=== PATIENT | male | born 1985 | race Caucasian/White ===

== ENCOUNTER 2016-07-28 10:19 | Outpatient (CLI) | payer BC ==
[~2016-07-28] VITALS: Ht 195.6 cm; Wt 143.3 kg
[2016-07-28 10:42] VITALS: BP 128/80
[2016-07-28] MEDS ORDERED: PRAV10TA PO (10:44)
[2016-07-28] MEDS ORDERED: DULA0.75 SQ (10:44)
[2016-07-28] MEDS ORDERED: LISI2.5T PO (10:44)
== END 2016-07-28 10:40 | disposition home or self-care (01) ==
LOC: PREOP 10:19
PROVIDERS: ATTEND Podiatrist Foot & Ankle Surgery
DX: Z01.818 Encounter for other preprocedural examination (principal); Z11.2 Encounter for screening for other bacterial diseases; M20.42 Other hammer toe(s) (acquired), left foot
CPT/HCPCS: 87081

== ENCOUNTER 2016-08-08 06:00 | Day surgery (SDC) | payer BC ==
[~2016-08-08] VITALS: Ht 195.6 cm; Wt 143.3 kg
[~2016-08-08 06:00] MED LIST: DULA0.75 SQ; LISI2.5T PO; PRAV10TA PO
[2016-08-08] MEDS ORDERED: LACTATED RINGERS 1,000 ML IV PRN (06:44)
[2016-08-08] MEDS ORDERED: MIDAZOLAM 2 MG/2 ML (VERSED) VIAL IV ONE (06:45)
[2016-08-08 07:00] VITALS: BP 125/83
[2016-08-08] MEDS ORDERED: ceFAZolin 1 GM/NS 50 ML IVPB IV ONE ×2 (07:00)
[2016-08-08] MEDS ORDERED: LACTATED RINGERS 1,000 ML IV ONE (07:04)
[2016-08-08] MEDS ORDERED: ONDANSETRON 4 MG/2 ML (SDV) Z0FRAN ONE (07:04)
[2016-08-08] MEDS ORDERED: MIDAZOLAM 2 MG/2 ML (VERSED) VIAL ONE (07:04)
[2016-08-08] MEDS ORDERED: SEVOFLURANE (ULTANE) 15 ML INHAL SOLN ONE ×8 (07:04→10:34)
[2016-08-08] MEDS ORDERED: LIDOCAINE PF 2% 10 ML (XYLOCAINE) AMP ONE (07:04)
[2016-08-08] MEDS ORDERED: proPOfol 200 MG/20 ML (DIPRIVAN) VIAL IV ONE (07:04)
[2016-08-08] MEDS ORDERED: fentaNYL INJECTION 100 MCG/2 ML AMP ONE ×2 (07:04→10:01)
[2016-08-08] MEDS ORDERED: LIDOCAINE 1% INJ 20 ML (XYLOCAINE) VIAL ONE (07:22)
[2016-08-08] MEDS ORDERED: BUPIVACAINE 0.5% 30 ML (SENSORCAINE) VIAL ONE (07:22)
--- NOTE | 2016-08-08 10:44 | Progress Note-Post Operative ---
Post-Operative Progess Note Surgeon (s)/Acid Bath Mixer (s) Surgeon NESSA COBURN DPM Acid Bath Mixer: none Pre-Operative Diagnosis HAMMERTOE LEFT 2ND 3RD AND 4TH, Hypertrophic 2nd Metatarsal Post-Operative Diagnosis Same Procedure & Operative Findings Date of Procedure 08/08/16 Procedure Performed/Findings contracted toes 2,3,4 left Anesthesia Type general Estimated Blood Loss Estimated blood loss (mL): minimal Specimens/Packing Specimens Removed none NESSA COBURN DPM August 08, 2016 10:44 am
[2016-08-08] MEDS ORDERED: morphine INJ 10 MG/ML 1ML (SYR OR VIAL) IVP PRN (10:45)
[2016-08-08] MEDS ORDERED: fentaNYL INJECTION 100 MCG/2 ML AMP IVP PRN (10:45)
[2016-08-08] MEDS ORDERED: ONDANSETRON 4 MG/2 ML (SDV) Z0FRAN IVP PRN ×2 (10:45→11:00)
[2016-08-08] MEDS ORDERED: LACTATED RINGERS 1,000 ML IV SCH (10:53)
[2016-08-08] MEDS ORDERED: CEPH500C PO (10:55)
[2016-08-08] MEDS ORDERED: HYDR-3812 PO (10:55)
[2016-08-08] MEDS ORDERED: HYDROcodone/APAP 5 MG/325 MG (LORTAB) TAB PO PRN (11:00)
[2016-08-08 11:35] VITALS: BP 128/84
[2016-08-08 12:05] VITALS: BP 130/90
[2016-08-08 12:35] VITALS: BP 130/83
--- NOTE | 2016-08-08 13:20 | Physical Therapy Progress Note ---
Therapy Progress Note Patient and spouse both state good knowledge of prior use of crutches and knee crutch for left LE use. PT educated patient and spouse on stair negotiation with up with the good leg and down with the bad leg and crutches. Spouse states they will use a w/c for 1-2 days then advance to crutches. PT instructed them to notify therapy is any questions or problems arise. No PT indicated. 1 visit LIAM CEDILLO PT August 08, 2016 13:20
[2016-08-08 13:50] VITALS: BP 130/83
--- NOTE | 2016-08-08 14:10 | Diagnostic Imaging Report ---
EXAMINATION: Frontal and lateral views of the left foot. INDICATION: Postoperative evaluation for hammertoe. FINDINGS: K wires through the interphalangeal joints of the second, third, and fourth toes with osteotomies of the head of the proximal phalanges of these toes seen. There is a screw through the head of the second metatarsal also identified. Joint alignment is satisfactory. There is a calcaneal spur seen. IMPRESSION: K wires through the interphalangeal joints of the second, third, and fourth toes with the osteotomy changes as described. Dictated by: Dictated on workstation # [id number]
--- NOTE | 2016-08-09 01:02 | OPERATIVE REPORT ---
DATE OF SERVICE: 08/08/2016 SURGEON: Amber Daly DPM PREOPERATIVE DIAGNOSES: Hammer digit syndrome, left second, third, and fourth digits with hypertrophic second metatarsal. POSTOPERATIVE DIAGNOSES: Hammer digit syndrome, left second, third, and fourth digits with hypertrophic second metatarsal. PROCEDURES: 1. Reduction of hammertoes, left second, left third and left fourth digits. 2. Second metatarsal osteotomy, left foot. WOUND CLASS: Clean. ANESTHESIA: General. HEMOSTASIS: Pneumatic thigh tourniquet at 250 mmHg. INDICATIONS: This 31-year-old male presents complaining of painful hammertoes, left foot. He is also complaining about pain underneath the left second metatarsophalangeal joint. Conservative therapy is met with unsatisfactory results and the patient is agreeable to surgical intervention after risks and complications were discussed at length. No guarantees were extended to the patient and he is willing to proceed. PROCEDURE: The patient was brought back to the operating table, placed in a secure supine position. General anesthetic was then induced. A proper time-out was performed. The left foot was then prepped and draped in normal sterile manner after a tourniquet was placed over the left lower extremity over several layers of padding. The left foot was then elevated, allowed to exsanguinate after which the tourniquet was inflated to 250 mmHg. Attention was then directed to the left foot where a 5 cm longitudinal linear incision was created from the metatarsophalangeal joint to the distal interphalangeal joint of the left second toe. The incisions were deepened in standard plane with great care to identify and retract all vital neurovascular structures. All the necessary blood vessels were cauterized as encountered. The incision was deepened down to the extensor tendon where a Z slide lengthening was performed overlying the proximal phalanx. The extensor tendon was reflected proximally exposing the metatarsophalangeal joint. The extensor rock was also released. Dorsal capsulorrhaphy was performed to the metatarsophalangeal joint and released the medial lateral collateral ligaments. The McGlamry elevator was utilized to release the plantar adhesions to allow the proximal phalanx to come down to more rectus alignment. Next, a drill was utilized to create a hole from dorsal to plantar at the base of the left second toe proximal phalanx. Dissection was carried out to the proximal interphalangeal joint where a medial and lateral collateral release was performed. The flexor digitorum brevis was identified, then reflected medial and laterally and the long flexor tendon was identified and cut at this point. It was then passed through the hole created at the proximal phalanx from plantar to dorsal. Next, the head of the proximal phalanx was fashioned into a peg with a power sagittal saw and power rajendra. A hole was created to the base of the middle phalanx with a power rajendra for the peg-in-hole type arthrodesis. The wound was flushed with copious amounts of normal saline. Good alignment was appreciated at this time. Attention was then directed to the second metatarsal head where hypertrophic head was identified. Utilizing a power sagittal saw, a Gray type osteotomy was performed. The capital fragment was translocated proximally and fixated in its corrected position with a 2.0 snap-off screw 14 mm of length, driven from dorsal to plantar. Excellent bony apposition and fixation was appreciated at this time. The excess bone to the second metatarsal head was reduced with a rongeur followed by a rasp. The wound was flushed with copious amounts of normal saline. The proximal phalanx was placed in physiological tension with a long flexor tendon pulled dorsally. The tendon was then split and was sutured to the medial and lateral aspect of the proximal phalanx. Next, a 0.054 K-wire was driven down to toe, securing the digit in rectus position. Excellent alignment was appreciated. The excess K-wire was cut and a protected ball placed over the end of the wire. Attention was then directed to the third and fourth rays where the same procedure was performed. Incision was created from the metatarsophalangeal joint to the distal interphalangeal joint of the respective digits. The incisions were deepened in the same plane with great care to identify and retract all vital neurovascular structures. Only necessary blood vessels were cauterized as encountered. The incision was deepened down to the extensor tendons where Z slide lengthening was performed overlying the proximal phalanx. The extensor hoods were released and a dorsal capsulorrhaphy performed to the metatarsophalangeal joint. The wound was flushed with copious amounts of normal saline. The head of the proximal phalanx was fashioned into a peg and the similar procedure was performed on the second ray and a hole created to the base of the middle phalanx again as was done previously, this time to the third and fourth digits. A 0.054 K-wire was driven down to toe to secure the digits in rectus alignment. Excellent bony apposition and fixation was appreciated at this time. The excess K-wire was cut and protected ball placed over the end of the wires. Good alignment was now appreciated to the second, third and fourth rays. The wounds were flushed once again after which closure was performed in layers. Deep closure was performed with 3-0 Vicryl, superficial with 4-0 Vicryl, skin closure with 4-0 Prolene in a horizontal mattress type stitch. It should also be noted that the flexor tendon transfer was secured with a 0 Vicryl stitch. Postoperative injection consisted of 16 mL of 0.5% Marcaine injected in local infusion to the surgical sites. Postoperative dressing consisted of Betadine soaked adaptic, sterile 4 x 4s, sterile Kerlix, all secured with a Coban wrap. Prior to the dressing, the tourniquet was released noting appropriate capillary refill time to all digits of the left foot. The patient tolerated the operation and was released to the recovery room with vital signs stable and vascular status intact to all digits of the left foot. He was given postoperatively a prescription for Vicodin and Keflex. He is to follow up in my office in 10 days period of time or sooner if necessary. Job ID: [id number] DocumentID: [id number] Dictated Date: 08/08/2016 10:51:25 Water Mechanic Date: 08/09/2016 00:10:34 Dictated By: MAGGIE MILLER
== END 2016-08-08 13:50 | disposition home or self-care (01) ==
LOC: SDC 06:00
PROVIDERS: ATTEND Podiatrist Foot & Ankle Surgery
DX: M20.42 Other hammer toe(s) (acquired), left foot (principal); M89.372 Hypertrophy of bone, left ankle and foot; E11.42 Type 2 diabetes mellitus with diabetic polyneuropathy; Z79.899 Other long term (current) drug therapy; I10 Essential (primary) hypertension; E78.5 Hyperlipidemia, unspecified; E66.9 Obesity, unspecified; Z68.37 Body mass index [BMI] 37.0-37.9, adult
CPT/HCPCS: 73620; 82962

== ENCOUNTER 2016-09-23 05:11 | Emergency (ER) | payer BC ==
[~2016-09-23] VITALS: Ht 195.6 cm; Wt 142.9 kg
[~2016-09-23 05:11] MED LIST changes: +CEPH500C PO; +HYDR-3812 PO
[2016-09-23] MEDS ORDERED: KETOROLAC 30 MG/ML VIAL IVP STA (05:41)
[2016-09-23] MEDS ORDERED: NS IV 1000 ML 1,000 ML IV ONE (05:41)
--- NOTE | 2016-09-23 05:41 | ED Headache ---
General Chief Complaint: Head/Cervical Problems Stated Complaint: MIGRAINE,FEVER 100.7 Nursing Triage Note: HEADACHE X2 DAYS. FEVER X1 DAY. Nursing Sepsis Screen: No Definite Risk Source: patient, spouse Exam Limitations: no limitations History of Present Illness Time seen by provider: 05:35 Initial Comments Patient presents with 2 days progressively worsening headache that started on the left side is constant and has migrated they're global headache. He is not experiencing any URI symptoms such as congestion and ear popping pain in the ears nose eyes or throat or sore throat or difficulty swallowing. He states she' s felt a little clammy and chilly. He does have type 2 diabetes he's not checked his own blood sugar for a while but he says typically runs in the 140s fasting. He is not immunocompromised and has no other significant medical history. He's had no rash or exposures to sick people. No travels [place]. He denies dysuria or discharge. He has a bah boot on his left foot from a recent hammertoe surgery by podiatry. He is still on the Keflex that was prescribed postop. He has used 3 doses in the past 2 days of csil-jyv-cfwexzw migraine medicine and one tablet of ibuprofen very little success to treat his headache. He feels he has a little bit of sensitivity to light and loud sounds. Sleep helped. Although the patient has no exposures to meningitis they were concerned after reading on the CDC website that maybe he would have meningitis and she has a headache a little neck stiffness and chills. Allergies and Home Medications Allergies Coded Allergies: No Known Drug Allergies (Unverified , 07/28/16) Home Medications Cephalexin 500 Mg Capsule, 1 CAP PO TID, #21 Ref 0 Prescribed by: NESSA COBURN on 08/08/16 1055 Dulaglutide 0.75 Mg/0.5 Ml Pen.injctr, 0.75 MG SQ WEEK, (Reported) takes on Monday Lisinopril 2.5 Mg Tablet, 2.5 MG PO HS, (Reported) Ondansetron HCl 4 Mg Tab, 4 MG PO Q6H PRN for NAUSEA/VOMITING-1ST LINE, #10 Ref 0 Prescribed by: YONY KAUFMAN on 09/23/16 0624 Pravastatin Sodium 10 Mg Tablet, 10 MG PO HS, (Reported) Constitutional: chills, diaphoresis, No fever (100.0F) Eyes: See HPI, Denies Pain, Photophobia Ears, Nose, Mouth, Throat: denies nose pain, denies nose discharge, denies epistaxis, denies mouth pain, denies mouth swelling, denies throat pain, denies throat swelling Respiratory: No cough, No short of breath Cardiovascular: No chest pain, No palpitations, No vascular heart diseas Gastrointestinal: No abdominal pain, No constipation, No diarrhea, No loss of appetite, nausea, No vomiting Genitourinary: No dysuria, No frequency Musculoskeletal: No back pain, No joint pain Skin: No pruritus, No rash Psychiatric/Neurological: See HPI, Headache, Denies Numbness, Denies Paresthesia Past Eeospco-Ngmwis-Fafxxz Hx Patient Social History Alcohol Use: Denies Use Recreational Drug Use: No Smoking Status: Never a Smoker 2nd Hand Smoke Exposure: No Recent Foreign Travel: No Contact w/Someone Who Travel: No Recent Infectious Disease Expo: No Recent Hopitalizations: No Immunizations Up To Date Tetanus Booster (TDap): Less than 5yrs Seasonal Allergies Seasonal Allergies: No Surgeries HX Surgeries: No Surgeries: Orthopedic Respiratory Hx Respiratory Disorders: No Cardiovascular Hx Cardiac Disorders: No Cardiac Disorders: High Cholesterol, Hypertension Neurological Hx Neurological Disorders: No Genitourinary Hx Genitourinary Disorders: No Gastrointestinal Hx Gastrointestinal Disorders: No Musculoskeletal Hx Musculoskeletal Disorders: Yes Endocrine Hx Endocrine Disorders: Yes Endocrine Disorders: Diabetes, Non-Insulin dep HEENT HX ENT Disorders: No Cancer Hx Cancer: No Psychosocial Hx Psychiatric Problems: No Integumentary HX Skin/Integumentary Disorder: Yes Skin/Integumentary Disorders: Eczema Blood Transfusions Hx Blood Disorders: No Physical Exam Vital Signs Vital Sign - Last 12Hours 09/23/16 05:22 Temp 99.6 Pulse 107 Resp 18 B/P (MAP) 121/82 Pulse Ox 95 O2 Delivery Room Air Capillary Refill : Less Than 3 Seconds General Appearance: WD/WN, mild distress HEENT: PERRL/EOMI, normal ENT inspection, TMs normal, pharynx normal Neck: non-tender, full range of motion, supple, normal inspection Cardiovascular: normal peripheral pulses, regular rate, rhythm, no edema Respiratory: chest non-tender, lungs clear, normal breath sounds, no respiratory distress Gastrointestinal: normal bowel sounds, non tender, soft Back: normal inspection, no CVA tenderness Extremities: no pedal edema, no calf tenderness, normal capillary refill Psychiatric: alert, oriented x 3 Crainal Nerves: normal hearing, normal speech, PERRL Motor/Sensory: no motor deficit, no sensory deficit Skin: normal color, warm/dry, diaphoresis Lymphatic: no adenopathy Progress/Results/Core Measures Results/Orders Lab Results Laboratory Tests Test 09/23/16 05:50 09/23/16 05:55 Range/Units Urine Color YELLOW Urine Clarity CLEAR Urine pH 5 5-9 Urine Specific Mellen 1.020 1.016-1.022 Urine Protein 2+ H NEGATIVE Urine Glucose (UA) NEGATIVE NEGATIVE Urine Ketones NEGATIVE NEGATIVE Urine Nitrite NEGATIVE NEGATIVE Urine Bilirubin NEGATIVE NEGATIVE Urine Urobilinogen NORMAL NORMAL MG/DL Urine Leukocyte Esterase 1+ H NEGATIVE Urine RBC (Auto) NEGATIVE NEGATIVE Urine RBC NONE /HPF Urine WBC RARE /HPF Urine Squamous Epithelial Cells RARE /HPF Urine Crystals PRESENT H /LPF Urine Amorphous Sediment FEW ALEJANDRO URATES H /LPF Urine Bacteria TRACE /HPF Urine Casts NONE /LPF Urine Mucus MODERATE H /LPF Urine Culture Indicated NO White Blood Count 7.0 4.3-11.0 10^3/uL Red Blood Count 4.93 4.35-5.85 10^6/uL Hemoglobin 14.6 13.3-17.7 G/DL Hematocrit 42 40-54 % Mean Corpuscular Volume 84 80-99 FL Mean Corpuscular Hemoglobin 30 25-34 PG Mean Corpuscular Hemoglobin Concent 35 32-36 G/DL Red Cell Distribution Width 12.6 10.0-14.5 % Platelet Count 162 130-400 10^3/uL Mean Platelet Volume 10.1 7.4-10.4 FL Neutrophils (%) (Auto) 67 42-75 % Lymphocytes (%) (Auto) 21 12-44 % Monocytes (%) (Auto) 11 0-12 % Eosinophils (%) (Auto) 2 0-10 % Basophils (%) (Auto) 0 0-10 % Neutrophils # (Auto) 4.7 1.8-7.8 X 10^3 Lymphocytes # (Auto) 1.5 1.0-4.0 X 10^3 Monocytes # (Auto) 0.8 0.0-1.0 X 10^3 Eosinophils # (Auto) 0.1 0.0-0.3 10^3/uL Basophils # (Auto) 0.0 0.0-0.1 10^3/uL Sodium Level 138 135-145 MMOL/L Potassium Level 3.7 3.6-5.0 MMOL/L Chloride Level 105 98-107 MMOL/L Carbon Dioxide Level 23 21-32 MMOL/L Anion Gap 10 5-14 MMOL/L Blood Urea Nitrogen 11 7-18 MG/DL Creatinine 0.97 0.60-1.30 MG/DL Estimat Glomerular Filtration Rate > 60 BUN/Creatinine Ratio 11 Glucose Level 155 H 70-105 MG/DL Calcium Level 8.8 8.5-10.1 MG/DL Total Bilirubin 1.2 H 0.1-1.0 MG/DL Aspartate Amino Transf (AST/SGOT) 69 H 5-34 U/L Alanine Aminotransferase (ALT/SGPT) 133 H 0-55 U/L Alkaline Phosphatase 55 40-136 U/L C-Reactive Protein High Sensitivity 1.11 H 0.00-0.50 MG/DL Total Protein 6.6 6.4-8.2 GM/DL Albumin 3.8 3.2-4.5 GM/DL My Orders Orders - YONY KAUFMAN Cbc With Automated Diff (09/23/16 05:41) Comprehensive Metabolic Panel (09/23/16 05:41) Hs C Reactive Protein (09/23/16 05:41) Thyroid Stimulating Hormone (09/23/16 05:41) Ua Culture If Indicated (09/23/16 05:41) Ketorolac Injection (Toradol Injection) (09/23/16 05:41) Saline Lock/Iv-Start (09/23/16 05:41) Ns Iv 1000 Ml (Sodium Chloride 0.9%) (09/23/16 05:41) Promethazine Tablet (Phenergan Tablet) (09/23/16 05:45) Medications Given in ED Current Medications Medications Dose Ordered Sig/Monica Route Start Time Stop Time Status Last Admin Dose Admin Promethazine HCl 25 mg ONCE ONCE PO 09/23/16 05:45 09/23/16 05:46 DC 09/23/16 05:54 25 MG Sodium Chloride 1,000 ml @ 0 mls/hr Q0M ONCE IV 09/23/16 05:41 09/23/16 05:46 DC 09/23/16 05:55 0 MLS/HR Vital Signs/I&O Vital Sign - Last 12Hours 09/23/16 05:22 Temp 99.6 Pulse 107 Resp 18 B/P (MAP) 121/82 Pulse Ox 95 O2 Delivery Room Air Blood Pressure Mean: 95 Progress Note #1: Time: 05:48 Progress Note Patient presents with a headache of unknown source. He acts like a viral syndrome 2 days progressively worsening and chills and fatigue and myalgias but there is no focal source seen in the upper respiratory region. We'll obtain some basic blood work looking for signs of a more disseminated invasive bacterial infection. We'll give him some fluids and treat his nausea and headache with NSAIDs and promethazine. He had an ibuprofen 200 mg this morning 2 :00 and is presently afebrile. Per report of his he has not had a fever yet. Progress Note #2: Time: 06:19 Progress Note No signs of a systemic infection. This is probably consistent with a viral infection although the source is not determined at this point. 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 Departure Impression Impression: Primary Impression: Headache Qualified Codes: R51 - Headache Disposition: 01 HOME, SELF-CARE Condition: Improved Departure-Patient Inst. Referrals: MELBA GODOY MD (PCP) Primary Care Physician BRITTANIE ELMORE (Family) Primary Care Physician Patient Instructions: Headache, Adult (DC) Add. Discharge Instructions: You do not have any signs of a systemic bacterial infection. This is likely office machines sales representative of a viral infection which will usually be self-limited within 5- 7 days. You should be encouraged to take copious amounts of fluids, use Tylenol 1000 mg every 8 hours as needed and ibuprofen 800 mg every 8 hours as needed to control your symptoms. If you have new or worrisome symptoms such as a fever above 102.5 or intractable nausea and vomiting you should return to the ER immediately. Otherwise plan on following up as needed with your primary care physician. If your symptoms last longer than 5-7 days would also be reasonable to follow up with her primary care physician. If you're having any nausea or vomiting you should take Zofran every 6 hours as needed. All discharge instructions reviewed with patient and/or family. Voiced understanding. Scripts Ondansetron HCl (Zofran) 4 Mg Tab 4 MG PO Q6H Y for NAUSEA/VOMITING-1ST LINE, #10 TAB 0 Refills Prov: YONY KAUFMAN 09/23/16 Copy Copies To 1: MELBA GODOY MD, TITUS J Sep 23, 2016 05:41
[2016-09-23] MEDS ORDERED: PROMETHAZINE 25 MG (PHENERGAN) TAB PO ONE (05:45)
[2016-09-23 06:03] LABS: BILIRUBIN,URINE NEGATIVE (NEGATIVE); KETONES,URINE NEGATIVE (NEGATIVE); LEUKOCYTE ESTERASE ,URINE 1+ (NEGATIVE); NITRITE,URINE NEGATIVE (NEGATIVE); PH,URINE 5 (5-9); PROTEIN,URINE 2+ (NEGATIVE); UROBILINOGEN,URINE NORMAL (NORMAL)
[2016-09-23 06:04] LABS: BASOPHILS % (AUTO) 0 % (0-10); EOSINOPHILS # (AUTO) 0.1 10^3/uL (0.0-0.3); EOSINOPHILS % (AUTO) 2 % (0-10); LYMPHOCYTES # (AUTO) 1.5 X 10^3 (1.0-4.0); LYMPHOCYTES % (AUTO) 21 % (12-44); MEAN CORPUSCULAR HEMOGLOBIN 30 PG (25-34); MEAN CORPUSCULAR HGB CONC 35 G/DL (32-36); MEAN CORPUSCULAR VOLUME 84 FL (80-99); MEAN PLATELET VOLUME 10.1 FL (7.4-10.4); MONOCYTES # (AUTO) 0.8 X 10^3 (0.0-1.0); MONOCYTES % (AUTO) 11 % (0-12); NEUTROPHILS # (AUTO) 4.7 X 10^3 (1.8-7.8); NEUTROPHILS % (AUTO) 67 % (42-75); PLATELET COUNT 162 10^3/uL (130-400); RED BLOOD COUNT 4.93 10^6/uL (4.35-5.85); RED CELL DISTRIBUTION WIDTH 12.6 % (10.0-14.5)
[2016-09-23 06:10] LABS: SQUAMOUS EPITHELIAL CELL,UR RARE /HPF; WBC,URINE RARE /HPF
[2016-09-23] MEDS ORDERED: ONDN4T PO (06:24)
[2016-09-23 06:28] LABS: ALANINE AMINOTRANSFERASE 133 U/L (0-55); ALBUMIN 3.8 GM/DL (3.2-4.5); ANION GAP 10 MMOL/L (5-14); ASPARTATE AMINO TRANSFERASE 69 U/L (5-34); BILIRUBIN,TOTAL 1.2 MG/DL (0.1-1.0); BLOOD UREA NITROGEN 11 MG/DL (7-18); BUN/CREATININE RATIO 11; CALCIUM 8.8 MG/DL (8.5-10.1); CARBON DIOXIDE 23 MMOL/L (21-32); CHLORIDE 105 MMOL/L (98-107); CREATININE SERUM 0.97 MG/DL (0.60-1.30); GFR ESTIMATED > 60; GLUCOSE 155 MG/DL (70-105); POTASSIUM 3.7 MMOL/L (3.6-5.0); SODIUM 138 MMOL/L (135-145); TOTAL PROTEIN 6.6 GM/DL (6.4-8.2); hs C REACTIVE PROTEIN 1.11 MG/DL (0.00-0.50)
[2016-09-23 06:45] VITALS: BP 102/63
[2016-09-23 06:48] LABS: THYROID STIMULATING HORMONE 1.02 UIU/ML (0.35-4.94)
--- OUTSIDE RECORDS SUMMARY | 2016-09-27 06:00 | XMS REPORT | Continuity of Care Document ---
Author Author [facility] Organization [facility] Address Unknown Phone Unavailable Allergies Medications Problems Procedures Results Encounters ACCT No. Visit Date/Time Discharge Status Pt. Type Provider Facility Loc./Unit Complaint [id number] 01/28/2014 08:52:00 2013 23:59:00 DIS Outpatient Sophie Waters PA-C [facility] DIAB [id number] 01/21/2014 08:55:00 2013 23:59:[address] [facility] DIAB [id number] 01/20/2014 09:23:00 2013 23:59:[address] [facility] IMG. [id number] 01/07/2014 16:17:00 2013 23:59:[address] [facility] IMG.RAD
== END 2016-09-23 06:45 | disposition home or self-care (01) ==
LOC: EDUNIT# 05:11 → ER 05:14
DX: R51 Headache (principal); E11.9 Type 2 diabetes mellitus without complications; E78.00 Pure hypercholesterolemia, unspecified; I10 Essential (primary) hypertension; Z79.4 Long term (current) use of insulin
CPT/HCPCS: 36415; 80053; 81000; 84443; 85025; 86141; 96361; 96374

== ENCOUNTER 2017-02-02 14:35 | Outpatient (CLI) | payer BC ==
[~2017-02-02] VITALS: Ht 195.6 cm; Wt 142.0 kg
[~2017-02-02 14:35] MED LIST changes: +ONDN4T PO
[2017-02-02] MEDS ORDERED: DULA1.5P2 SQ (14:43)
[2017-02-02 14:46] VITALS: BP 128/85
== END 2017-02-02 14:50 | disposition home or self-care (01) ==
LOC: PREOP 14:35
PROVIDERS: ATTEND Podiatrist Foot & Ankle Surgery
DX: Z01.818 Encounter for other preprocedural examination (principal); M20.41 Other hammer toe(s) (acquired), right foot
CPT/HCPCS: 87081

== ENCOUNTER 2017-03-03 11:35 | Day surgery (SDC) | payer BC ==
[~2017-03-03] VITALS: Ht 195.6 cm; Wt 142.0 kg
[~2017-03-03 11:35] MED LIST changes: +DULA1.5P2 SQ
[2017-03-03 11:40] VITALS: BP 114/79
[2017-03-03] MEDS ORDERED: LACTATED RINGERS 1,000 ML IV PRN (11:54)
[2017-03-03] MEDS ORDERED: LIDOCAINE PF 2% 5 ML (XYLOCAINE) VIAL ONE (11:59)
[2017-03-03] MEDS ORDERED: proPOfol 200 MG/20 ML (DIPRIVAN) VIAL IV ONE (11:59)
[2017-03-03] MEDS ORDERED: DEXAMETHASONE 10 MG/ML (DECADRON) 1 ML VIAL ONE (11:59)
[2017-03-03] MEDS ORDERED: MIDAZOLAM 2 MG/2 ML (VERSED) VIAL ONE (11:59)
[2017-03-03] MEDS ORDERED: fentaNYL INJECTION 100 MCG/2 ML AMP ONE (11:59)
[2017-03-03] MEDS ORDERED: LACTATED RINGERS 1,000 ML IV ONE (11:59)
[2017-03-03] MEDS ORDERED: HURRICAINE EXT TUBE (BENZOCAINE) ONE (11:59)
[2017-03-03] MEDS ORDERED: SEVOFLURANE (ULTANE) 15 ML INHAL SOLN ONE ×9 (11:59→14:43)
[2017-03-03] MEDS ORDERED: FAMOTIDINE 20MG/2ML IV (PEPCID) IV ONE (12:00)
[2017-03-03] MEDS ORDERED: GLYCOPYRROLATE 0.2 MG/ML (ROBINUL) 2 ML VIAL IV ONE (12:00)
--- OUTSIDE RECORDS SUMMARY | 2017-03-03 12:00 | XMS REPORT | Continuity of Care Document ---
Author Author [facility] Organization [facility] Address Unknown Phone Unavailable Allergies There is no data. Medications There is no data. Problems There is no data. Procedures There is no data. Results There is no data. Encounters ACCT No. Visit Date/Time Discharge Status Pt. Type Provider Facility Loc./Unit Complaint [id number] 01/28/2014 08:52:00 01/28/2014 23:59:00 DIS Outpatient Sophie Waters PA-C [facility] DIAB [id number] 01/21/2014 08:55:00 01/21/2014 23:59:00 DIS Outpatient [facility] DIAB [id number] 01/20/2014 09:23:00 01/20/2014 23:59:00 DIS Outpatient [facility] IMG. [id number] 01/07/2014 16:17:00 01/07/2014 23:59:00 DIS Outpatient [facility] IMG.[facility]
[2017-03-03] MEDS ORDERED: ATRACURIUM 50 MG/5 ML (TRACRIUM) IV ONE ×2 (12:08→13:21)
[2017-03-03] MEDS ORDERED: BUPIVACAINE 0.5% 30 ML (SENSORCAINE) VIAL ONE (12:09)
[2017-03-03] MEDS ORDERED: CATHETER FLUSH 10 ML SYR IV PRN (12:15)
[2017-03-03] MEDS ORDERED: ceFAZolin 1 GM/NS 50 ML IVPB IV ONE ×2 (12:15)
--- NOTE | 2017-03-03 12:33 | Progress Note-Pre Operative ---
Pre-Operative Progress Note H&P Reviewed The H&P was reviewed, patient examined and no changes noted. Date Seen by Provider: Mar 03, 2017 Time Seen by Provider: 12:33 Date H&P Reviewed: Mar 03, 2017 Time H&P Reviewed: 12:33 Pre-Operative Diagnosis: Hammertoes 2,3,4,5 right foot NESSA COBURN DPM Mar 03, 2017 12:33 pm
[2017-03-03] MEDS ORDERED: LACTATED RINGERS 1,000 ML IV SCH (14:45)
[2017-03-03] MEDS ORDERED: ONDANSETRON 4 MG/2 ML (SDV) Z0FRAN IVP PRN (14:45)
[2017-03-03] MEDS ORDERED: HYDROcodone/APAP 5 MG/325 MG (LORTAB) TAB PO PRN (14:45)
--- NOTE | 2017-03-03 14:45 | Progress Note-Post Operative ---
Post-Operative Progess Note Surgeon (s)/Drywall Metal Stud Worker (s) Surgeon NESSA COBURN DPM Drywall Metal Stud Worker: none Pre-Operative Diagnosis Hammertoes 2,3,4,5 right foot Post-Operative Diagnosis same Procedure & Operative Findings Date of Procedure 03/03/17 Procedure Performed/Findings Reduction of hammertoes 2, 3, 4, 5 right foot Anesthesia Type General Estimated Blood Loss Estimated blood loss (mL): minimal Specimens/Packing Specimens Removed none NESSA COBURN DPM Mar 03, 2017 2:45 pm
[2017-03-03] MEDS ORDERED: CEPH500C PO (14:47)
[2017-03-03] MEDS ORDERED: HYDR-3812 PO (14:47)
[2017-03-03] MEDS ORDERED: morphine INJ 10 MG/ML 1ML (SYR OR VIAL) IVP PRN (15:00)
--- NOTE | 2017-03-03 15:10 | Diagnostic Imaging Report ---
INDICATION: Postoperative film of the right foot. FINDINGS: There are osteotomies of the distal portion of the proximal second, third, fourth, and fifth phalanges. K wires are present in the second, third, and fourth phalanges extending across the osteotomies. The fifth phalanx does not have a K wire. IMPRESSION: Postoperative film showing osteotomies with K wires second through fourth phalanges. Dictated by: Dictated on workstation # [id number]
--- NOTE | 2017-03-03 15:12 | Physical Therapy Progress Note ---
Therapy Progress Note Talked with family and patient has established crutches from previous surgery and does not require skilled therapy intervention. LIAM CEDILLO PT Mar 03, 2017 15:12
[2017-03-03 15:35] VITALS: BP 130/94
[2017-03-03 16:05] VITALS: BP 134/87
[2017-03-03 16:30] VITALS: BP 137/87
[2017-03-03 16:31] VITALS: BP 137/87
--- NOTE | 2017-03-03 23:53 | OPERATIVE REPORT ---
DATE OF SERVICE: SURGEON: Amber Coburn DPM. PREOPERATIVE DIAGNOSIS: Hammer digit syndrome, right second, third, fourth and fifth toes. POSTOPERATIVE DIAGNOSIS: Hammer digit syndrome, right second, third, fourth and fifth toes. PROCEDURE: Reduction of hammertoes, right second, third, fourth and fifth digits. WOUND CLASS: Clean. ANESTHESIA: General. HEMOSTASIS: Pneumatic thigh tourniquet at 300 mmHg. INDICATION: This 32-year-old male presents complaining of painful hammertoes, right foot. Conservative therapy has met with unsatisfactory results and the patient is agreeable to surgical intervention after risks and complications were discussed at length. No guarantees were extended to the patient and he is willing to proceed. DESCRIPTION OF PROCEDURE: The patient was brought back to the operating table, placed in secure supine position. Appropriate time out was performed. A general anesthetic was then induced. A pneumatic thigh tourniquet was applied to the right lower extremity over several layers of padding. The right foot was then prepped and draped in normal sterile manner. The right foot was then elevated and allowed to exsanguinate after which the tourniquet was inflated to 250 mmHg. Attention was then directed to the dorsal aspect of the second, third and fourth digits where the same procedure was performed. An incision was created from the metatarsophalangeal joint out to the distal interphalangeal joint area to each of the digits 2, 3, 4 and 5. The incisions were then deepened in the same plane with great care to identify and retract all vital neurovascular structures. All the necessary blood vessels were cauterized as encountered. The incision was deepened down to the extensor tendon where a Z-slide lengthening was performed to each toe. The extensor tendon was reflected proximally and extensor rock released exposing the metatarsophalangeal joint which was then sharply incised. The medial and lateral collateral ligaments were also released to the metatarsophalangeal joint of the 2nd, 3rd and 4th rays. This allowed the proximal phalanx to come down in rectus alignment. Next, attention was then directed to the head of the proximal phalanx where a power sagittal saw and power bur were utilized to create a peg and a hole was created to the base of the middle phalanx for the peg-in-hole type arthrodesis. A 0.054 K-wire was used to fit to hold the digit in its new corrected position. The K wires were through the proximal phalanx at the end of the toe holding the digit in rectus alignment. The K wires were cut and a protective ball placed over at the end of the wire. The wounds were flushed with copious amounts of normal saline throughout the procedure and closure was then performed in layers. Deep closure was performed with 3-0 Vicryl, superficial with 4-0 Vicryl, skin closure with 4-0 Prolene in a horizontal mattress type stitch. Attention was then directed to the right fifth toe where contracture was noted. A 2 cm longitudinal linear incision was created. The incision was deepened down to the extensor tendon where a transverse tenotomy was performed overlying the proximal interphalangeal joint. The incision was deepened down to the medial lateral collateral ligaments as well exposing the hypertrophic head of the proximal phalanx which was resected utilizing a power sagittal saw. The wound was flushed with copious amounts of normal saline and closure was performed in layers. Deep closure was performed with 3-0 Vicryl, superficial with 4-0 Vicryl, skin closed with 4-0 Prolene in a horizontal mattress type stitch. Postoperative injection consisted of 17 mL of 0.5% Marcaine injected in a local effusion to the surgical sites. Postoperative dressings consisted of Betadine-soaked Adaptic, sterile 4 x 4s, sterile Kerlix, all secured with a Coban wrap. Prior to the dressing being applied, the tourniquet was released noting appropriate cap refill time to all digits of the right foot. The patient tolerated the anesthesia and procedure well, was transported from the operating room to the recovery area with vital signs stable and vascular status intact to all digits of the right foot. He is to follow up in my office in 10 days' period of time. He was given prescription for Keflex and Vicodin. He is to be partial weightbearing on the right with crutches and a splint shoe. Job ID: [id number] DocumentID: [id number] Dictated Date: 03/03/2017 14:53:28 [employer] Vehicle [employer] Date: 03/03/2017 23:53:13 Dictated By: AMBER COBURN DPM
== END 2017-03-03 16:50 | disposition home or self-care (01) ==
LOC: SDC 11:35
PROVIDERS: ATTEND Podiatrist Foot & Ankle Surgery
DX: M20.41 Other hammer toe(s) (acquired), right foot (principal); E11.9 Type 2 diabetes mellitus without complications; E78.2 Mixed hyperlipidemia; E66.9 Obesity, unspecified; Z68.37 Body mass index [BMI] 37.0-37.9, adult; Z79.4 Long term (current) use of insulin; Z79.899 Other long term (current) drug therapy
CPT/HCPCS: 73620; 82962